=== PATIENT | female | born 1995 | race Caucasian/White ===

== ENCOUNTER 2020-05-20 23:08 | Emergency (ER) | payer MEDICAID ==
[~2020-05-20] VITALS: Ht 160 cm; Wt 86.2 kg
[2020-05-20 23:09] VITALS: BP 122/90
--- NOTE | 2020-05-20 23:12 | NUR ---
to bed # 02 ambulatory
--- NOTE | 2020-05-20 23:17 | NUR ---
Dr. Talavera examining patient.
--- NOTE | 2020-05-20 23:20 | NUR ---
PATIENT PRESENTS TO ED WITH C/O LOWER, MID ABDOMINAL PAIN RADIATING TO RIGHT SIDE . PT STATES PAIN "IS JUST THERE". DENIES N/V/D; SKIN IS PINK/WARM/DRY; AAOX4 WITH EVEN AND STEADY GAIT; LUNGS CLEAR BL; HR EVEN AND REGULAR; PT DENIES ANY FEVER, CP, SOB, OR COUGH AT THIS TIME; PATIENT STATES PAIN OF 10/10 AT THIS TIME; VSS; PATIENT POSITIONED FOR COMFORT; HOB ELEVATED; BEDRAILS UP X2; BED DOWN. ER MD MADE AWARE OF PT STATUS.
[2020-05-20] MEDS ORDERED: KETOROLAC 30 MG/ML VIAL IM ONE (23:25)
[2020-05-20] MEDS ORDERED: DICYCLOMINE HCL LIQUID 20 MG, ALUMINUM HYD/MAG/SIMETHICONE 30 ML, LIDOCAINE VISCOUS 2% ... PO ONE ×3 (23:25)
--- NOTE | 2020-05-20 23:25 | NUR ---
UA OBTAINED AND DIPPED
[2020-05-20 23:38] LABS: APPEARANCE,URINE HAZY (CLEAR); BILIRUBIN,URINE NEGATIVE (NEGATIVE); BLOOD, URINE TRACE-I (NEGATIVE); COLOR,URINE YELLOW (YELLOW); LEUKOCYTE ESTERASE ,URINE NEGATIVE (NEGATIVE); NITRITE, URINE NEGATIVE (NEGATIVE); UGLUCOSE NEGATIVE (NEGATIVE)
[2020-05-20 23:40] LABS: BASOPHILS # (AUTO) 0.1 K/uL (0.00-0.22); BASOPHILS % (AUTO) 1.1 % (0.0-2.0); EOSINOPHILS # (AUTO) 0.1 K/uL (0-0.4); HEMATOCRIT 40.3 % (36-48); HEMOGLOBIN 13.6 g/dL (12.0-16.0); LYMPHOCYTES % (AUTO) 17.6 % (20.5-51.1); MEAN CORPUSCULAR HEMOGLOBIN 30 pg (27-31); MEAN CORPUSCULAR HGB CONC 34 g/dL (33-37); MEAN CORPUSCULAR VOLUME 89.9 fL (80-94); MONOCYTES # (AUTO) 0.6 K/uL (0.8-1.0); MONOCYTES % (AUTO) 5.1 % (1.7-9.3); NEUTROPHILS # (AUTO) 8.4 K/uL (1.8-7.7); NEUTROPHILS % (AUTO) 75.2 % (42.2-75.2); PLATELET COUNT (AUTO) 277 K/uL (140-450); RED BLOOD CELL COUNT(AUTO) 4.48 MIL/uL (4.20-5.40); RED CELL DISTRIBUTION WIDTH 13.3 % (11.6-13.7); WHITE BLOOD COUNT (AUTO) 11.1 K/uL (4.8-10.8)
[2020-05-20 23:53] LABS: ALBUMIN 3.9 g/dL (3.4-5.0); ANION GAP 14.4 (8-16); CARBON DIOXIDE 26.3 mmol/L (21-32); CREATININE 0.8 mg/dL (0.6-1.3); POTASSIUM 3.7 mmol/L (3.5-5.1); TOTAL BILIRUBIN 1.3 mg/dL (0.0-1.0)
[2020-05-20 23:53] LABS: RBC,URINE 0-5 /HPF (0-5); WBC,URINE 0 /HPF (0-5)
[2020-05-21] MEDS ORDERED: DICYCLOMINE HCL LIQUID 10 MG/5 ML UDC ONE (00:12)
[2020-05-21] MEDS ORDERED: ALUMINUM HYD/MAG/SIMETHICONE 30 ML UDC ONE (00:12)
[2020-05-21] MEDS ORDERED: LIDOCAINE VISCOUS 2% 20 ML UDC ONE (00:12)
--- NOTE | 2020-05-21 00:38 | NUR ---
pt notified of US. placed in gown.
--- NOTE | 2020-05-21 01:00 | NUR ---
US IN PROGRESS
--- NOTE | 2020-05-21 03:15 | NUR ---
DR. FUENTES AT BEDSIDE FOR RE-EXAM, EVAL AND DISPOSITION
[2020-05-21] MEDS ORDERED: HYDROcodone/APAP 5/325 MG 1 TAB TAB PO ONE (03:20)
--- NOTE | 2020-05-21 03:28 | NUR ---
Patient discharged with v/s stable. Written and verbal after care instructions given and explained. Patient alert, oriented and verbalized understanding of instructions. Ambulatory with steady gait. All questions addressed prior to discharge. ID band removed. Patient advised to follow up with PMD. Rx of POORNIMA & BARBARA given. Patient educated on indication of medication including possible reaction and side effects. Opportunity to ask questions provided and answered.
[2020-05-21 03:32] VITALS: BP 120/69
== END 2020-05-21 03:28 | disposition home or self-care (01) ==
LOC: MED 23:08
DX: R10.10 Upper abdominal pain, unspecified (principal)
CPT/HCPCS: 36415; 76705; 80053; 81001; 81025; 83690; 85025; 96372; 99284; J1885

== ENCOUNTER 2020-07-17 21:13 | Emergency (ER) | payer MEDICAID ==
[~2020-07-17] VITALS: Ht 160 cm; Wt 84.8 kg
[2020-07-17 21:24] VITALS: BP 133/83
--- NOTE | 2020-07-17 21:24 | NUR ---
TO BED AMBULATORY
[2020-07-17] MEDS ORDERED: DICYCLOMINE HCL LIQUID 20 MG, ALUMINUM HYD/MAG/SIMETHICONE 30 ML, LIDOCAINE VISCOUS 2% ... PO ONE ×3 (21:40)
[2020-07-17] MEDS ORDERED: ONDANSETRON 4 MG ODT PO ONE (21:40)
[2020-07-17] MEDS ORDERED: DICYCLOMINE HCL LIQUID 10 MG/5 ML UDC ONE ×2 (21:42→21:44)
[2020-07-17] MEDS ORDERED: ALUMINUM HYD/MAG/SIMETHICONE 30 ML UDC ONE (21:42)
[2020-07-17] MEDS ORDERED: LIDOCAINE VISCOUS 2% 20 ML UDC ONE (21:42)
--- NOTE | 2020-07-17 21:45 | NUR ---
Pt c/o mid-epigastric pain starting yesterday afternoon, radiating to right upper abd. States it is worse after eating. Denies dysuria but c/o urinary frequency since Wednesday. A/Ox4, steady gait. Denies medical hx.
[2020-07-17] MEDS ORDERED: OMEP40EC24 PO (21:48)
[2020-07-17] MEDS ORDERED: CIPR500T4 PO (21:48)
[2020-07-17] MEDS ORDERED: ONDA8TAB87 PO (21:54)
[2020-07-17 22:12] VITALS: BP 133/83
--- NOTE | 2020-07-17 22:13 | NUR ---
Patient discharged with v/s stable. Written and verbal after care instructions given and explained. Patient alert, oriented and verbalized understanding of instructions. Ambulatory with steady gait. All questions addressed prior to discharge. ID band removed. Patient advised to follow up with PMD. Rx of Cipro, Prilosec, and Zofran given. Patient educated on indication of medication including possible reaction and side effects. Opportunity to ask questions provided and answered.
== END 2020-07-17 22:12 | disposition home or self-care (01) ==
LOC: MED 21:13
DX: N39.0 Urinary tract infection, site not specified (principal); R10.13 Epigastric pain; R11.0 Nausea; Z90.49 Acquired absence of other specified parts of digestive tract; Z79.899 Other long term (current) drug therapy
CPT/HCPCS: 81002; 81025; 99283; Q0162

== ENCOUNTER 2020-11-15 13:18 | Emergency (ER) | payer MEDICAID, OTHER ==
[~2020-11-15] VITALS: Ht 160 cm; Wt 86.2 kg
[~2020-11-15 13:18] MED LIST: CIPR500T4 PO; OMEP40EC24 PO; ONDA8TAB87 PO
[2020-11-15 13:33] VITALS: BP 138/69
--- NOTE | 2020-11-15 13:36 | NUR ---
PT TO AWAIT IN LOBBY
--- NOTE | 2020-11-15 15:33 | NUR ---
AIMEE PARRISH EXAMINING PT IN TRIAGE
[2020-11-15] MEDS ORDERED: ACET-10509 PO (15:38)
[2020-11-15] MEDS ORDERED: CEPH-588 PO (15:38)
[2020-11-15 16:04] VITALS: BP 138/69
--- NOTE | 2020-11-15 16:04 | NUR ---
Patient discharged with v/s stable. Written and verbal after care instructions given and explained. Patient alert, oriented and verbalized understanding of instructions. Ambulatory with steady gait. All questions addressed prior to discharge. ID band removed. Patient advised to follow up with PMD. Rx of TYLENOL AND KEFLEX given. Patient educated on indication of medication including possible reaction and side effects. Opportunity to ask questions provided and answered.
== END 2020-11-15 16:04 | disposition home or self-care (01) ==
LOC: MED 13:18
DX: N39.0 Urinary tract infection, site not specified (principal)
CPT/HCPCS: 81002; 81025; 99283

== ENCOUNTER 2020-11-30 00:44 | Emergency (ER) | payer OTHER ==
[~2020-11-30] VITALS: Ht 160 cm; Wt 83.9 kg
[~2020-11-30 00:44] MED LIST changes: +ACET-10509 PO; +CEPH-588 PO
[2020-11-30 01:02] VITALS: BP 126/75
--- NOTE | 2020-11-30 01:10 | NUR ---
TO LOBBY FOLLOWING TRIAGE
--- NOTE | 2020-11-30 03:36 | NUR ---
DR. SAINZ EXAMINING PT
[2020-11-30] MEDS ORDERED: LIDO1ADH TP (05:27)
[2020-11-30] MEDS ORDERED: SULF-58 PO (05:27)
[2020-11-30] MEDS ORDERED: CYCL-711 PO (05:27)
--- NOTE | 2020-11-30 05:51 | NUR ---
Patient discharged with v/s stable. Written and verbal after care instructions given and explained. Patient alert, oriented and verbalized understanding of instructions. Ambulatory with steady gait. All questions addressed prior to discharge. ID band removed. Patient advised to follow up with PMD. Rx of FLEXERIL, LIDAFLEX, BACTRIM given. Patient educated on indication of medication including possible reaction and side effects. Opportunity to ask questions provided and answered.
== END 2020-11-30 05:51 | disposition home or self-care (01) ==
LOC: MED 00:44
DX: N12 Tubulo-interstitial nephritis, not specified as acute or chronic (principal); N39.0 Urinary tract infection, site not specified; M54.5 Low back pain
CPT/HCPCS: 72100; 81002; 81025; 99283

== ENCOUNTER 2021-05-31 13:47 | Emergency (ER) | payer OTHER ==
[~2021-05-31] VITALS: Ht 160 cm; Wt 98.0 kg
[~2021-05-31 13:47] MED LIST changes: +CYCL-711 PO; +LIDO1ADH TP; +SULF-58 PO
[2021-05-31 14:04] VITALS: BP 109/41
[2021-05-31 14:51] LABS: BASOPHILS % (AUTO) 0.2 % (0.0-2.0); EOSINOPHILS # (AUTO) 0.1 K/uL (0-0.4); EOSINOPHILS % (AUTO) 0.9 % (0.0-4.0); HEMATOCRIT 39.5 % (36-48); HEMOGLOBIN 13.4 g/dL (12.0-16.0); LYMPHOCYTES # (AUTO) 1.7 K/uL (2.5-16.5); LYMPHOCYTES % (AUTO) 20.1 % (20.5-51.1); MEAN CORPUSCULAR HEMOGLOBIN 31 pg (27-31); MEAN CORPUSCULAR HGB CONC 34 g/dL (33-37); MEAN CORPUSCULAR VOLUME 90.9 fL (80-94); MONOCYTES # (AUTO) 0.6 K/uL (0.8-1.0); MONOCYTES % (AUTO) 7.7 % (1.7-9.3); NEUTROPHILS # (AUTO) 5.9 K/uL (1.8-7.7); NEUTROPHILS % (AUTO) 71.1 % (42.2-75.2); PLATELET COUNT (AUTO) 236 K/uL (140-450); RED BLOOD CELL COUNT(AUTO) 4.34 MIL/uL (4.20-5.40); WHITE BLOOD COUNT (AUTO) 8.2 K/uL (4.8-10.8)
[2021-05-31 19:25] VITALS: BP 109/41
--- NOTE | 2021-05-31 19:25 | NUR ---
Patient discharged with v/s stable. Written and verbal after care instructions given and explained. Patient verbalized understanding. Ambulatory with steady gait. All questions addressed prior to discharge. Advised to follow up with PMD. LEFT WITHOUT PAPER WORK.
== END 2021-05-31 19:25 | disposition home or self-care (01) ==
LOC: MED 13:47
DX: N92.1 Excessive and frequent menstruation with irregular cycle (principal)
CPT/HCPCS: 36415; 81002; 81025; 85025; 87086; 99283

== ENCOUNTER 2021-07-05 19:34 | Emergency (ER) | payer OTHER ==
[~2021-07-05] VITALS: Ht 160 cm; Wt 101.2 kg
[2021-07-05 19:45] VITALS: BP 116/70
--- NOTE | 2021-07-05 19:49 | NUR ---
patient to [facility] ambulatory
[2021-07-05] MEDS ORDERED: COROTSOL RIGHT EAR (20:02)
[2021-07-05] MEDS ORDERED: IBUP-2213 PO (20:02)
--- NOTE | 2021-07-05 20:18 | NUR ---
seen by higinio no nursing interventions provided for patient.
[2021-07-05 20:21] VITALS: BP 116/70
--- NOTE | 2021-07-05 20:21 | NUR ---
Patient discharged with v/s stable. Written and verbal after care instructions given and explained. Patient alert, oriented and verbalized understanding of instructions. Ambulatory with steady gait. All questions addressed prior to discharge. ID band removed. Patient advised to follow up with PMD. Rx of ibuprofen and cortisporin otic solution given. Patient educated on indication of medication including possible reaction and side effects. Opportunity to ask questions provided and answered.
== END 2021-07-05 20:21 | disposition home or self-care (01) ==
LOC: MED 19:34
DX: H60.501 Unspecified acute noninfective otitis externa, right ear (principal); Z79.899 Other long term (current) drug therapy
CPT/HCPCS: 99283

== ENCOUNTER 2021-09-17 20:57 | Emergency (ER) | payer OTHER ==
[~2021-09-17] VITALS: Ht 160 cm; Wt 95.3 kg
[~2021-09-17 20:57] MED LIST changes: +COROTSOL RIGHT EAR; +IBUP-2213 PO
[2021-09-17 21:18] VITALS: BP 112/76
--- NOTE | 2021-09-17 21:38 | NUR ---
Patient ambulated to bed 5.
--- NOTE | 2021-09-17 21:38 | NUR ---
Kvng alvares in [facility] - 09/17/21 at 2139 by [email or web address] Patient ambulated to bed 4.
--- NOTE | 2021-09-17 21:58 | NUR ---
ARTUR RN AT BEDSIDE PERFORMING HEART TONE
--- NOTE | 2021-09-17 22:06 | NUR ---
Heart Tone 140, Dr. Christine and Dr. Shipley notified.
[2021-09-17 22:17] LABS: APPEARANCE,URINE CLEAR (CLEAR); BILIRUBIN,URINE NEGATIVE (NEGATIVE); BLOOD, URINE 1+ (NEGATIVE); COLOR,URINE YELLOW (YELLOW); LEUKOCYTE ESTERASE ,URINE TRACE (NEGATIVE); NITRITE, URINE NEGATIVE (NEGATIVE); UGLUCOSE NEGATIVE (NEGATIVE)
[2021-09-17 22:21] LABS: RBC,URINE 0-5 /HPF (0-5); WBC,URINE 60-80 /HPF (0-5)
[2021-09-17] MEDS ORDERED: PYRIDOXINE 100 MG/ML VIAL IV ONE (22:30)
[2021-09-17] MEDS ORDERED: NACL 0.9% 500 ML IV ONE (22:40)
--- NOTE | 2021-09-17 22:48 | NUR ---
25 Y/O F WITH C/O N/V X3 DAYS AND DIARRHEA X 2 DAYS. WATER LIKE DIARRRHEA. AND PT IS 15 WEEKS . PT SHARP PAIN ON LEFT SIDE .ABOUT 3/10 PAIN. SKIN IS PINK/WARM/DRY; AAOX4 WITH EVEN AND STEADY GAIT; LUNGS CLEAR BL; HR EVEN AND REGULAR; PT DENIES ANY FEVER, CP, SOB, OR COUGH AT THIS TIME; NO PMH. NO RX NO ALLERGIES
[2021-09-17 22:54] LABS: BASOPHILS % (AUTO) 0.2 % (0.0-2.0); EOSINOPHILS # (AUTO) 0.1 K/uL (0-0.4); EOSINOPHILS % (AUTO) 0.6 % (0.0-4.0); HEMOGLOBIN 11.7 g/dL (12.0-16.0); LYMPHOCYTES # (AUTO) 1.6 K/uL (2.5-16.5); LYMPHOCYTES % (AUTO) 18.2 % (20.5-51.1); MEAN CORPUSCULAR HEMOGLOBIN 31 pg (27-31); MEAN CORPUSCULAR HGB CONC 35 g/dL (33-37); MEAN CORPUSCULAR VOLUME 88.3 fL (80-94); MONOCYTES # (AUTO) 0.8 K/uL (0.8-1.0); MONOCYTES % (AUTO) 8.9 % (1.7-9.3); NEUTROPHILS # (AUTO) 6.4 K/uL (1.8-7.7); NEUTROPHILS % (AUTO) 72.1 % (42.2-75.2); PLATELET COUNT (AUTO) 209 K/uL (140-450); RED BLOOD CELL COUNT(AUTO) 3.85 MIL/uL (4.20-5.40); RED CELL DISTRIBUTION WIDTH 13.6 % (11.6-13.7); WHITE BLOOD COUNT (AUTO) 8.9 K/uL (4.8-10.8)
--- NOTE | 2021-09-17 22:55 | NUR ---
US AT BEDSIDE
[2021-09-17 23:10] LABS: ALBUMIN 3.1 g/dL (3.4-5.0); ANION GAP 11.7 (8-16); CREATININE 0.5 mg/dL (0.6-1.3); POTASSIUM 3.7 mmol/L (3.5-5.1); TOTAL BILIRUBIN 0.7 mg/dL (0.0-1.0)
[2021-09-17] MEDS ORDERED: PYRI50TA PO (23:45)
[2021-09-17] MEDS ORDERED: CEPH250C16 PO (23:45)
[2021-09-18] MEDS ORDERED: PYRIDOXINE 100 MG/ML VIAL IV ONE (00:15)
[2021-09-18 00:55] VITALS: BP 112/75
--- NOTE | 2021-09-18 00:55 | NUR ---
Patient discharged with v/s stable. Written and verbal after care instructions given and explained. Patient alert, oriented and verbalized understanding of instructions. Ambulatory with steady gait. All questions addressed prior to discharge. ID band removed. Patient advised to follow up with PMD. Rx of CEPHALEXIN AND PYRIDOXINE HCL given. Opportunity to ask questions provided and answered.
--- NOTE | 2021-09-18 00:55 | NUR ---
The patient's care was reviewed and supervised by Maria De Jesus Ruby RN.
[2021-09-18] MEDS ORDERED: PYRIDOXINE 50 MG TAB PO SCH (09:00)
== END 2021-09-18 00:25 | disposition home or self-care (01) ==
LOC: MED 20:57
DX: O23.43 Unspecified infection of urinary tract in pregnancy, third trimester (principal); O21.9 Vomiting of pregnancy, unspecified; R11.0 Nausea; O23.42 Unspecified infection of urinary tract in pregnancy, second trimester; N39.0 Urinary tract infection, site not specified; O41.1220 Chorioamnionitis, second trimester, not applicable or unspecified; Z3A.15 15 weeks gestation of pregnancy
CPT/HCPCS: 36415; 76705; 80053; 81001; 81025; 85025; 87086; 96360; 99284; J3415; J7030; Q0092

== ENCOUNTER 2021-11-19 03:10 | Emergency (ER) | payer OTHER ==
[~2021-11-19] VITALS: Ht 160 cm; Wt 93.9 kg
[~2021-11-19 03:10] MED LIST changes: +CEPH250C16 PO; +PYRI50TA PO
[2021-11-19 03:20] VITALS: BP 121/71
--- NOTE | 2021-11-19 03:23 | NUR ---
TO LOBBY A/W BED AMBULATORY
--- NOTE | 2021-11-19 04:27 | NUR ---
Patient ambulated to bed 6.
--- NOTE | 2021-11-19 05:06 | NUR ---
26 YO F BIB SELF FOR RASH X 2 DAYS . PT STATES RASH STARTED X2 DAYS AGO.PT STATES ITS ITCHY , RED AND BLOTCHY ALL OVER BODY. PT IS 24 WEEKS PREGANT AND STATES SHE HAS NOT HAD A FEVER . PT DENIES COUGH , CHEST PAIN, AND DIARRHEA. PT STATES NO CHANGES IN DIET/ SOAP OR PETS. PT USED BIO OIL TO SOOTHE PMH: HYPOTHYROID RX: SHE USED TO TAKE LEVOTHYROXIN
--- NOTE | 2021-11-19 05:12 | NUR ---
Dr. Talavera examining patient.
[2021-11-19] MEDS ORDERED: DIPH25TA41 PO (05:57)
[2021-11-19 06:20] VITALS: BP 118/69
--- NOTE | 2021-11-19 06:20 | NUR ---
Patient discharged with v/s stable. Written and verbal after care instructions given and explained. Patient alert, oriented and verbalized understanding of instructions. Ambulatory with steady gait. All questions addressed prior to discharge. ID band removed. Patient advised to follow up with PMD. Rx of BENADRYL HCL given. Patient educated on indication of medication including possible reaction and side effects. Opportunity to ask questions provided and answered. VSS, A/OX4, AMBULATORY, UNLABORED BREATHING, AND CALM DEMEANOR.
== END 2021-11-19 06:20 | disposition home or self-care (01) ==
LOC: MED 03:10
DX: O26.892 Other specified pregnancy related conditions, second trimester (principal); L50.0 Allergic urticaria; E07.9 Disorder of thyroid, unspecified; Z3A.26 26 weeks gestation of pregnancy; Z79.899 Other long term (current) drug therapy
CPT/HCPCS: 99282

== ENCOUNTER 2022-12-20 02:24 | Inpatient (IN) | payer MEDICAID, OTHER ==
[~2022-12-20] VITALS: Ht 160 cm; Wt 91.6 kg
[~2022-12-20 02:24] MED LIST changes: +BENZ-300 PO; +DIPH25TA41 PO; +PENI500T20 PO
[2022-12-20 02:50] VITALS: BP 129/77; PULSE 87; RESP 16; TEMP 97.8; O2SAT 97
[2022-12-20] MEDS ORDERED: NACL 0.9% 1,000 ML IV ONE (03:30)
[2022-12-20] MEDS ORDERED: ONDANSETRON 4 MG/2 ML VIAL IVP ONE ×2 (03:30→05:50)
[2022-12-20] MEDS ORDERED: MORPHINE SULFATE 4 MG/ML SYR IVP ONE (03:30)
[2022-12-20 04:45] LABS: BASOPHILS % (AUTO) 0.2 % (0.0-2.0); EOSINOPHILS # (AUTO) 0.1 K/uL (0-0.4); EOSINOPHILS % (AUTO) 0.9 % (0.0-4.0); HEMATOCRIT 38.3 % (36-48); HEMOGLOBIN 12.6 g/dL (12.0-16.0); LYMPHOCYTES # (AUTO) 1.8 K/uL (2.5-16.5); LYMPHOCYTES % (AUTO) 16.3 % (20.5-51.1); MEAN CORPUSCULAR HEMOGLOBIN 28 pg (27-31); MEAN CORPUSCULAR HGB CONC 33 g/dL (33-37); MEAN CORPUSCULAR VOLUME 85.5 fL (80-94); MONOCYTES # (AUTO) 0.9 K/uL (0.8-1.0); MONOCYTES % (AUTO) 7.9 % (1.7-9.3); NEUTROPHILS # (AUTO) 8.4 K/uL (1.8-7.7); NEUTROPHILS % (AUTO) 74.7 % (42.2-75.2); PLATELET COUNT (AUTO) 230 K/uL (140-450); RED BLOOD CELL COUNT(AUTO) 4.47 MIL/uL (4.20-5.40); RED CELL DISTRIBUTION WIDTH 13.8 % (11.6-13.7); WHITE BLOOD COUNT (AUTO) 11.2 K/uL (4.8-10.8)
[2022-12-20 05:00] LABS: ALBUMIN 3.2 g/dL (3.4-5.0); ANION GAP 14.7 (8-16); CALCIUM 8.1 mg/dL (8.5-10.1); CARBON DIOXIDE 25.2 mmol/L (21-32); CREATININE 0.7 mg/dL (0.6-1.3); POTASSIUM 3.9 mmol/L (3.5-5.1); TOTAL BILIRUBIN 0.6 mg/dL (0.0-1.0)
[2022-12-20] MEDS ORDERED: MORPHINE SULFATE 2 MG/ML SYR IVP PRN (05:15)
[2022-12-20] MEDS ORDERED: POTASSIUM CHLORIDE 10 MEQ TABER PO PRN (05:15)
[2022-12-20] MEDS ORDERED: ONDANSETRON 4 MG/2 ML VIAL IVP PRN (05:15)
[2022-12-20] MEDS ORDERED: NACL 0.9% 1,000 ML IV SCH (05:15)
[2022-12-20] MEDS ORDERED: KCL 20 MEQ IN 100 mL PREMIX 200 ML IV PRN (05:15)
[2022-12-20] MEDS ORDERED: ACETAMINOPHEN 325 MG TAB PO PRN (05:15)
[2022-12-20] MEDS ORDERED: MAG SULF 2000 MG/WATER PREMIX 50 ML IV PRN (05:15)
[2022-12-20] MEDS ORDERED: HYDROcodone/APAP 5/325 MG 1 TAB TAB PO PRN (05:15)
[2022-12-20] MEDS ORDERED: MAGNESIUM OXIDE 400 MG TAB PO PRN (05:15)
[2022-12-20 05:35] LABS: APPEARANCE,URINE CLEAR (CLEAR); BILIRUBIN,URINE NEGATIVE (NEGATIVE); BLOOD, URINE NEGATIVE (NEGATIVE); COLOR,URINE YELLOW (YELLOW); LEUKOCYTE ESTERASE ,URINE NEGATIVE (NEGATIVE); NITRITE, URINE NEGATIVE (NEGATIVE); PH,URINE 7.5 (5.0-9.0); PROTEIN,URINE NEGATIVE (NEGATIVE); UGLUCOSE NEGATIVE (NEGATIVE); UROBILINOGEN,URINE 0.2 EU/dL (0.2 - 1)
[2022-12-20] MEDS ORDERED: PIPERACILLIN/TAZOBACTAM 3.375 GM in DEXTROSE 5% 50 ML IV SCH (12:30)
[2022-12-20] MEDS ORDERED: PIPERACILLIN/TAZOBACTAM 3.375 GM VIAL IV ONE (13:04)
[2022-12-20 18:10] VITALS: BP 114/76; PULSE 75; RESP 16; TEMP 98; O2SAT 98
== END 2022-12-20 18:05 | disposition left against medical advice (07) ==
LOC: MED 02:24 → MTU 05:18
PROVIDERS: ADMIT Internal Medicine; ATTEND Internal Medicine
DX: K80.20 Calculus of gallbladder without cholecystitis without obstruction (principal); E44.0 Moderate protein-calorie malnutrition; K76.0 Fatty (change of) liver, not elsewhere classified; Z53.29 Procedure and treatment not carried out because of patient's decision for other reasons; R74.01 Elevation of levels of liver transaminase levels; Z90.49 Acquired absence of other specified parts of digestive tract; Z79.899 Other long term (current) drug therapy; Z68.35 Body mass index [BMI] 35.0-35.9, adult
CPT/HCPCS: 36415; 76705; 80053; 81003; 82150; 83690; 85025; 96361; 96374; 96375; 99285; J2270; J2405; J2543; J7030; J7060; Q0092